=== PATIENT | female | born 1985 ===

== ENCOUNTER 2018-04-08 07:00 | Day surgery (SDC) | payer OTHER | END 2018-04-08 17:25 | disposition home or self-care (01) | LOC: CIR.AMB 07:00 | DX: M62.431 Contracture of muscle, right forearm (principal) ==

== ENCOUNTER 2018-04-09 22:37 | Emergency (ER) | payer OTHER ==
[~2018-04-09] VITALS: Ht 165.1 cm; Wt 63.5 kg
== END 2018-04-10 00:27 | disposition home or self-care (01) ==
LOC: ER 22:37
DX: G43.909 Migraine, unspecified, not intractable, without status migrainosus (principal)